=== PATIENT | male | born 1985 | race Two or more races ===

== ENCOUNTER 2018-06-05 08:06 | Inpatient (IN) | payer OTHER ==
[2018-06-05] VITALS (29 sets, daily range): BP systolic 111–157; BP diastolic 44–77; PULSE 59–114; RESP 12–25; Ht 172.7 cm; Wt 96.6 kg
[~2018-06-05] VITALS: Ht 172.7 cm; Wt 96.6 kg
[2018-06-05] MEDS ORDERED: LISI10TA2 PO (08:58)
[2018-06-05] MEDS ORDERED: ATOR10TA65 PO (08:58)
[2018-06-05] MEDS ORDERED: ACETAMINOPHEN 500 MG TAB PO ONE (09:00)
--- NOTE | 2018-06-05 10:07 | PREAC ---
Date/Time of Note Date/Time of Note DATE: 06/05/18 TIME: 10:05 Anesthesia Eval and Record Evaluation Time Pre-Procedure Interview DATE: 06/05/18 TIME: 10:05 Age 32 Sex male NPO: 8 hrs Preoperative diagnosis bilateral gynecomastia Planned procedure bilateral mastectomy and excision of subareolar tissue Past Medical History Past Medical History: Includes Cardio: HTN, Dyslipidemia GI: Obesity Surgery & Anesthesia Issues No known issue Meds Anticoagulation: No Beta Julisa within 24 hr: No Reason Beta Julisa not given: Pt. not on B-Julisa Reported Medications Atorvastatin Calcium (Atorvastatin Calcium) 10 Mg Tablet, 10 MG PO QHS, #30 TAB 06/05/18 Lisinopril* (Lisinopril*) 10 Mg Tablet, 10 MG PO DAILY, #30 TAB 06/05/18 Meds reviewed: Yes Allergies Coded Allergies: No Known Allergy (Unverified , 06/05/18) Allergies Reviewed: Yes Labs/Studies Labs Reviewed: Reviewed by anesthesiologist test: N/A Pre-procedure Exam Last vitals Vital Signs Date Temp Pulse Resp B/P (MAP) Pulse Ox O2 O2 Flow FiO2 Time Delivery Rate 06/05/18 97.6 65 16 130/69 99 Room Air 09:27 (89) Airway: Adequate mouth opening, Adequate thyromental dist Mallampati: Mallampati II Teeth: Normal Lung: Normal Heart: Normal ASA Physical Status ASA physical status: 2 Emergency: None Planned Anesthetic General/MAC: LMA Pre-operative Attestations Prior to commencing anesthesia and surgery, the patient was re-evaluated, there was verification of: *The patient's identity *The results of appropriate recent lab work and preoperative vital signs *The above evaluation not changing prior to induction *Anesthetic plan, risk benefits, alternative and complications discussed with patient/family; questions answered; patient/family understands, accepts and wishes to proceed. AMADOR BUSTILLO Jun 05, 2018 10:07
[2018-06-05] MEDS ORDERED: METOCLOPRAMIDE 10 MG INJ ONE (10:16)
[2018-06-05] MEDS ORDERED: ONDANSETRON 4 MG INJ ONE (10:16)
[2018-06-05] MEDS ORDERED: PROPOFOL 40 ML ONE (10:16)
[2018-06-05] MEDS ORDERED: FENTAnyl 50 MCG/ML VIAL ONE ×3 (10:16→12:54)
[2018-06-05] MEDS ORDERED: LIDOCAINE 2% (SDV) 5 ML INJ ONE (10:16)
[2018-06-05] MEDS ORDERED: MIDAZOLAM 1 MG/ML 2 ML INJ ONE (10:16)
[2018-06-05] MEDS ORDERED: CEFAZOLIN 1 GM INJ ONE (10:16)
[2018-06-05] MEDS ORDERED: FAMOTIDINE 20 MG INJ ONE (10:17)
[2018-06-05] MEDS ORDERED: OXYCODONE/ACETAMINOPHEN (5/325) TAB PO PRN ×2 (10:30)
[2018-06-05] MEDS ORDERED: ALBUTEROL 0.083% (NEB) 2.5 MG/3 ML AMP HHN PRN (10:30)
[2018-06-05] MEDS ORDERED: morphine (1 MG/ML) 10ML SYRINGE IV PRN ×2 (10:30)
[2018-06-05] MEDS ORDERED: ONDANSETRON 4 MG INJ IV PRN (10:30)
[2018-06-05] MEDS ORDERED: HYDROmorphONE 1 MG/5 ML IV SYRINGE IV PRN (10:30)
[2018-06-05] MEDS ORDERED: FENTAnyl 50 MCG/ML VIAL IV PRN (10:30)
[2018-06-05] MEDS ORDERED: DIPHENHYDRAMINE 50 MG INJ IV PRN (10:30)
[2018-06-05] MEDS ORDERED: MEPERIDINE 25 MG INJ IV PRN (10:30)
[2018-06-05] MEDS ORDERED: LABETALOL HCL 20MG INJ IV PRN (10:30)
[2018-06-05] MEDS ORDERED: PHENYLephrine (100 MCG/ML) 5ML SYG ONE ×2 (11:35→12:12)
[2018-06-05] MEDS ORDERED: ESMOLOL 10 ML ONE (11:53)
--- NOTE | 2018-06-05 12:43 | SIPON ---
Date/Time of Note Date/Time of Note DATE: 06/05/18 TIME: 12:42 Operative Report Preoperative Diagnosis Bilateral gynecomastia Postoperative Diagnosis Same Operation/Procedure Performed Bilateral simple mastectomies Surgeon see signature line office assistance Dr Chavez Anesthesia: general Estimated blood loss: 10 - 50 ml's Transfusion Required none Specimen Bilateral mastectomy specimens Grafts/Implants none Complications none GERTRUDE LUJAN MD Jun 05, 2018 12:43
[2018-06-05] MEDS ORDERED: morphine 2 MG INJ IV PRN (13:00)
--- NOTE | 2018-06-05 13:00 | OPR ---
DATE OF OPERATION: 06/05/2018 PREOPERATIVE DIAGNOSIS: Bilateral gynecomastia. POSTOPERATIVE DIAGNOSIS: Bilateral gynecomastia. OPERATION PERFORMED: Bilateral simple mastectomy. ANESTHESIA: General. ANESTHESIOLOGIST: Nurse sign language translator, Bessy Prieto NP SURGEON: Alexander Reinoso MD MILK DRIVER: David Chavez MD INDICATIONS FOR PROCEDURE: The patient is a 32-year-old male who noticed a gradual enlargement of hi s breast tissue bilaterally associated with the enlargement with significant pain and tenderness. Th e patient states that whenever he will hug his , he would feel significant pain in his breast. F or this reason, he seek surgical consultation for bilateral simple mastectomy. A workup was done and specifically testicular exam did not reveal evidence of tumor and blood work did not reveal evidence of an endocrine etiology; therefore, decision was made to proceed with surgery. The patient was con sented and was scheduled for surgery. DESCRIPTION OF PROCEDURE: The patient was brought to the operating theater, placed under general ane sthesia. The anterior thorax and breast regions were prepped and draped bilaterally in the usual kalee rile fashion. Attention was first directed to the left side. A periareolar incision was made from t he 9 o'clock location through the 12 o'clock location to the 3 o'clock location. Subcutaneous tissue was dissected with cautery. Skin hooks were used to elevate the skin edges and skin flaps were crea nehal using cautery in 360-degree fashion, taking care to remove as much of the accessory breast tissue as possible. Mastectomy then took place from medial to lateral using cautery, taking care to leave the pectoralis major fascia intact. In this fashion, the entire specimen was elevated, transected, o riented and sent for permanent pathologic analysis. The wound was irrigated. Minimal bleeding was c ontrolled with cautery. A #10 flat Cory-Velasquez drain was then brought through the left mid axillar y line, cut to size and laid within the wound cavity. It was secured in place with 2-0 nylon suture in the standard fashion. The skin incision was then reapproximated with 5-0 PDS suture in subcuticul ar fashion and Dermabond was applied. Attention was then directed to the right side. In a similar f ashion, a periareolar incision was made from the 3 o'clock location through the 12 o'clock location t o the 9 o'clock location. Subcutaneous tissue was dissected with cautery. Skin edges were elevated with skin hooks and 360-degree dissection of the breast tissue took place via the creation of overlyi ng skin flaps. The specimen was then elevated and transected off of the pectoralis major muscle, rachel ing great care to leave the pectoralis major fascia intact. Specimen was removed, oriented and sent for permanent pathologic analysis. The wound was irrigated. Minimal bleeding was controlled with ca utery. A #10 flat Cory-Velasquez drain was then brought through the right mid axillary line, cut to s ize and laid within the wound. It was secured in place with 2-0 nylon suture in a standard fashion. The skin was then reapproximated with 5-0 PDS suture in subcuticular fashion. Dermabond was applied . The patient tolerated the procedure well. The total blood loss was approximately 40 mL. There we re no complications and the patient was then transported in stable condition to the recovery room whe re circumferential compression dressing was applied. Dictated By: ALEXANDER REINOSO MD TL/DELORIS Conf#: [id number] DID#: [id number] CC: OLEG POLANCO MD;*End*
--- NOTE | 2018-06-05 13:03 | PAC ---
Date/Time of Note Date/Time of Note DATE: 06/05/18 TIME: 13:02 Post-Anesthesia Notes Post-Anesthesia Note Last documented vital signs Vital Signs Date Temp Pulse Resp B/P (MAP) Pulse Ox O2 O2 Flow FiO2 Time Delivery Rate 06/05/18 98 98 16 132/64 () 99 Room Air 1257 Activity: WNL Respiratory function: WNL Cardiovascular function: WNL Mental status: Baseline Pain reasonably controlled: Yes Hydration appropriate: Yes Nausea/Vomiting absent: Yes AMADOR BUSTILLO Jun 05, 2018 13:03
--- NOTE | 2018-06-05 13:20 | NUR ---
Dr. Roa office was regarding medical consult and spoke to Faviola, office personnel.
[2018-06-05] MEDS: HYDROmorphONE 1 MG/5 ML IV SYRINGE IV PRN ×2 (13:36→13:57)
[2018-06-05] MEDS: FENTAnyl 50 MCG/ML VIAL IV PRN ×2 (13:37→13:58)
--- NOTE | 2018-06-05 14:20 | NUR ---
RECEIVED PATIENT REPORT FROM CHARGE NURSE KIKA LÓPEZ. RECEIVED PATIENT TO UNIT 407 AT 14 20 AFTER BILATERAL MASTECTOMY SECONDARY TO GYNAECOMASTIA. UNDER GENERAL ANAESTHESIA. PATIENT COMFORTABLE, VITALS STABLE UPON ADMISSION, IV SITE INTACT AND PATENT WITH IVFLUID ON FLOW. SURGICAL SITE ON BILATERAL CHEST SIDE DRESSING INTACT AND RIGHT AND LEFT ANUSHKA DRAINS FUNCTIONING WELL . NO BLEEDING NOTED. PATIENT GIVEN WITH CLEAR FLUIDS AND WILL ADVANCE TO REGULAR DIET. ALL SAFETY PRECAUTIONS MAINTAINED SUCH BED IN THE LOWEST POSITION, ALARMS ON, BRAKES ON, CALL LIGHT WITHIN REACH. INTRODUCED TO THE UNIT AND STAFF. CALL LIGHT SYSTEM INSTRUCTED . WILL CONTINUE TO MONITOR. .
[2018-06-05] MEDS: D5W-0.45 NACL + KCL 20 MEQ 1,000 ML IV SCH ×2 (14:41→20:43)
[2018-06-05] MEDS: morphine 4 MG/ML VIAL IV PRN ×3 (16:30→20:38)
--- NOTE | 2018-06-05 18:34 | NUR ---
END OF SHIFT NOTE: PATIENT COMFORTABLE . SURGICAL SITE INTACT AND NO BLEEDING NOTED. BOTH ANUSHKA DRAINS EMPTIED AND RECORDED. DIET TOLERATED. ASSISTED WITH BRP. ALL SAFETY PRECAUTIONS MAINTAINED. SCD'S ON. WILL CONTINUE TO MONITOR. CALL LIGHT WITHIN REACH.
[2018-06-05] MEDS ORDERED: ACETAMINOPHEN 325 MG TAB PO PRN (22:00)
[2018-06-06] VITALS: BP 138/72; PULSE 71; RESP 18
--- NOTE | 2018-06-06 00:17 | HP ---
DATE OF ADMISSION: 06/05/2018 CHIEF COMPLAINT AND HISTORY OF PRESENT ILLNESS: The patient is a 32-year-old gentleman with history of hypertension and dyslipidemia. He was seen by Dr. Reinoso because of symptomatic, gradually worseni ng gynecomastia. The patient was brought into the hospital today and underwent bilateral simple mast ectomy. The patient postoperatively had significant chest wall pain; therefore, patient has been adm itted for evaluation and management. The patient denied any history of headache, dizziness, or synco pe. No history of fever or chills. No history of nausea, vomiting, or diarrhea. No history abdomin al pain. No history of leg edema. No history of any focal weakness. No previous history of diabete s. REVIEW OF SYSTEMS: Rest of review of systems unremarkable. PAST MEDICAL HISTORY: As stated above. ALLERGIES: NONE. SOCIAL HISTORY: No smoking or alcohol. FAMILY HISTORY: Noncontributory. PHYSICAL EXAMINATION: GENERAL: The patient found to be awake, alert, and fairly oriented. VITAL SIGNS: Temperature 98.4, pulse 82, respirations 18, blood pressure 128/66, O2 saturation 97% o n room air. HEENT: No eye discharge or redness. Conjunctivae normal. Oropharynx grossly negative. NECK: No mass. CHEST: Fairly clear. CARDIOVASCULAR: S1, S2 normal. No murmur. ABDOMEN: Soft, nontender. EXTREMITIES: No leg edema. NEUROLOGIC: The patient is awake, alert, and fairly oriented with no gross focal deficit. IMPRESSION: 1. Symptomatic bilateral gynecomastia, status post bilateral simple mastectomy. 2. Hypertension. 3. Dyslipidemia. PLAN: The patient will be admitted on medical floor and will be started on Tylenol, [place], and morph ine for pain control. We will resume lisinopril and Lipitor at home. We will use SCD for DVT prophy laxis. Further recommendation and plan will depend on hospital course. We will order CBC and BMP to [place]. Dictated By: OLEG POLANCO MD AB/NTS Conf#: [id number] DID#: [id number] CC: GERTRUDE REINOSO MD;*EndCC*
[2018-06-06] MEDS: HYDROCODONE/APAP (5/325) TAB PO PRN ×3 (00:26→10:11)
[2018-06-06] MEDS: morphine 4 MG/ML VIAL IV PRN (01:59)
[2018-06-06] MEDS ORDERED: DIPHENHYDRAMINE 25 MG CAP PO PRN (04:30)
--- NOTE | 2018-06-06 04:32 | NUR ---
END OF SHIFT NOTE: PATIENT IS A AND O X 4; NOT IN DISTRESS. VS IS WNL; ALL MEDICATIONS HAVE BEEN GIVEN ORDERED AND PRN; ALL NEEDS ATTENDED; CALL LIGHT WITHIN REACH ; WILL ENDORSE TO THE DAY SHIFT RN
[2018-06-06] MEDS: D5W-0.45 NACL + KCL 20 MEQ 1,000 ML IV SCH ×2 (04:43→12:42)
[2018-06-06 04:53] VITALS: BP 128/69; PULSE 75; RESP 18
[2018-06-06 07:40] VITALS: BP 118/66; PULSE 92; RESP 18
[2018-06-06] MEDS ORDERED: LISINOPRIL 10 MG TAB PO SCH (09:00)
--- NOTE | 2018-06-06 14:00 | NUR ---
Patient is alert and oriented x4, able to make needs known; PRN [place] given as needed for pain with good effectiveness noted; no SOB/respiratory distress noted upon assessment; dressing to bilateral breast incision is clean, dry and intact, each connected to ANUSHKA drain patent and draining well; ambulates with steady gait; Dr. Chavez came in and cleared the patient for discharge, post op instructions given by MD; kept comfortable; call light placed within reached; all needs attended; Dr. Roa put in the discharge order for the patient.
--- NOTE | 2018-06-06 14:18 | PDOCDIS ---
Discharge Instructions CONDITION [id number] Patient Condition: [id number] Good HOME CARE INSTRUCTIONS: [id number] Diet Instructions: Yyfna0y Low Fat /Cholesterol ACTIVITY: Kznii4Oa Activity Restrictions: Hndra4m Slowly Increase Activity FOLLOW UP/APPOINTMENTS Follow-up Plan Dr. Reinoso next week PMD in 1-2 week OLEG POLANCO MD Jun 06, 2018 14:18
--- NOTE | 2018-06-06 15:10 | PN ---
DATE: 06/05/2018 Postop day #1 status post bilateral simple subcutaneous mastectomy for gynecomastia. SUBJECTIVE: No complaint. Has had 1 pain medication since morning and night at about 3:00 p.m. in t he afternoon. Wants to go home. OBJECTIVE: VITAL SIGNS: Temperature maximum 98.8, heart rate 75, respiration 18, blood pressure 128/69, saturat ion 98% room air. LABORATORY DATA: WBC 7600, hemoglobin 14.7, hematocrit 43.9. Chemistry: Sodium, potassium, BUN, cr eatinine, glucose, calcium within normal limits. PHYSICAL EXAMINATION: The patient alert as was mentioned. CHEST: Symmetrical expansion. CARDIOVASCULAR: Regular. The lungs are clear. There are 2 Cory-Velasquez drains were coming out eac h from one side of the chest area. The drainage from the Cory-Velasquez drains from some operation ye day to 7 o'clock today morning has been totally 130 mL on the left side, 70 mL on the right, it i s serosanguinous fluid. PLAN: The patient can be discharged home. The patient states that he has pain medication, oxycodone at home and other pain medications at home. Patient was instructed how to take care of Cory-Prat t drains, how to empty them and how to drain them, how to measure them write them down record them an d have the drainage every day and to call Dr. Lujan' office and make an appointment for followup and the days that he goes for followup to take the paper with him so that Dr. Lujan can make a decision i n regard to when to remove the drains. Also, patient was instructed in case any other problem appear s like fever, redness of the skin and any other problem like this, call Dr. Lujan' office or come to the Emergency Room here. Dictated By: ENMANUEL ALMONTE MD PS/NTS Conf#: [id number] DID#: [id number] CC: GERTRUDE LUJAN MD;*End*
--- NOTE | 2018-06-06 15:12 | NUR ---
MEDICAL COST CONSULTANT NOTES: Discharged patient to home via wheelchair accompanied by ; all discharge instructions given and patient verbalized understanding; no home medication prescribed; IV line was discontinued with tip intact; ANUSHKA drain supplies provided; all needs attended; to follow-up with Dr. Reinoso in 1-2 weeks.
--- NOTE | 2018-06-06 15:17 | DS ---
DATE OF ADMISSION: 06/05/2018 DATE OF DISCHARGE: 06/06/2018 DISCHARGE DIAGNOSES: 1. Bilateral gynecomastia, status post bilateral simple mastectomy. 2. Hypertension. 3. Dyslipidemia. DISCHARGE MEDICATIONS: Continue Lisinopril and Lipitor as before. The patient states he has pain me dication at home which he will continue; he could not remember the name of the medication. FOLLOWUP: With PMD in 1 to 2 weeks. Follow up with Dr. Reinoso in 1 week. REASON FOR ADMISSION: The patient is a 32-year-old gentleman with a history of hypertension, dyslip idemia, was seen by Dr. Reinoso because of gradually worsening bilateral gynecomastia. The patient was brought into hospital on 06/05/2018 and underwent bilateral mastectomies. The patient's postoperati ve pain was managed with Tylenol, [place] and IV morphine. Today he is not requiring any significant p ain medication. No shortness of breath. No history of fever or chills. No history of nausea, vomit ing. NEUROLOGIC: The patient is awake, alert, fairly oriented. VITAL SIGNS: Temperature 98, pulse 92, respirations 18, blood pressure 118/66, O2 sat 95 on room air . HEENT: No eye discharge or redness. Conjunctivae normal. Oropharynx clear. NECK: No mass. CHEST: Fairly clear. CARDIOVASCULAR: S1, S2 normal. ABDOMEN: Soft, nontender. EXTREMITIES: No leg edema. NEUROLOGIC: Patient looks alert with no gross focal deficit. LABORATORY DATA: Done this morning, sodium 142, potassium 4.4, BUN 13, creatinine 1, glucose 98, ashtyn cium 9.7. WBC 7.6, hemoglobin 14.7, platelet 262. CONDITION: Stable. DIET: Two-gram sodium, low fat, low cholesterol diet. Dictated By: OLEG POLANCO MD AB/NTS Conf#: [id number] DID#: [id number] CC: GERTRUDE REINOSO MD;*EndCC*
[2018-06-06] MEDS ORDERED: ATORVASTATIN 10 MG TAB PO SCH (21:00)
== END 2018-06-06 15:05 | disposition home or self-care (01) | DRG 585 ==
LOC: REC 08:06 → MS1 14:14
PROVIDERS: ADMIT Surgery Surgical Oncology; ATTEND Surgery Surgical Oncology
PROC: 0HTV0ZZ Resection of Bilateral Breast, Open Approach (ICD-10-PCS; principal; 2018-06-05 10:30)
DX: N62 Hypertrophy of breast (principal); I10 Essential (primary) hypertension; E78.5 Hyperlipidemia, unspecified
CPT/HCPCS: 80048; 85025; 88307; J0690; J1170; J2175; J2250; J2270; J2370; J2405; J2765; J3010; J3480

== ENCOUNTER 2018-07-11 17:01 | Emergency (ER) | payer OTHER ==
[~2018-07-11] VITALS: Ht 180.3 cm; Wt 98.0 kg
[~2018-07-11 17:01] MED LIST: ATOR10TA65 PO; LISI10TA2 PO
[2018-07-11 17:25] VITALS: BP 154/88; PULSE 82; RESP 18; Ht 180.3 cm; Wt 98.0 kg
[2018-07-11] MEDS ORDERED: ACETAMINOPHEN 325 MG TAB PO ONE (18:30)
[2018-07-11] MEDS ORDERED: DIPHTH/TET/ACEL PERTUSS (ADULT) 0.5 ML VIAL IM* ONE (18:30)
[2018-07-11] MEDS ORDERED: ONDA8TAB14 PO (20:27)
--- NOTE | 2018-07-11 20:30 | ERD ---
ER Documentation Chief Complaint Chief Complaint pt is bib self with c/o head pain s/o hitting it yesterday , -KO HPI This 32-year-old male presents with headache after hitting his head while having his dog treated at pet grooming store. He was hit by sharp metal object on the right forehead. He thought pain would resolve but he has persistent frontal headache and photophobia. He has nausea without vomiting. There is no history of loss of consciousness, neck pain, deficits, visual changes. Tetanus is not up-to-date. It was a sharp object and he sustained a puncture wound above the right eyebrow. ROS All systems reviewed and are negative except as per history of present illness. Medications Home Meds Active Scripts Ondansetron (Ondansetron Odt) 8 Mg Tab.rapdis, 8 MG PO Q6H PRN for NAUSEA AND/OR VOMITING, #6 TAB Prov:DANY EDDY MD 07/11/18 Reported Medications Atorvastatin Calcium (Atorvastatin Calcium) 10 Mg Tablet, 10 MG PO QHS, #30 TAB 06/05/18 Lisinopril* (Lisinopril*) 10 Mg Tablet, 10 MG PO DAILY, #30 TAB 06/05/18 Allergies Allergies: Coded Allergies: No Known Allergy (Unverified , 06/05/18) PMhx/Soc Medical and Surgical Hx: pt denies Medical Hx, pt denies Surgical Hx History of Surgery: Yes (apendectomy) Anesthesia Reaction: No Hx Neurological Disorder: No Hx Respiratory Disorders: No Hx Cardiac Disorders: No Hx Psychiatric Problems: No Hx Miscellaneous Medical Probl: No Hx Alcohol Use: No Hx Substance Use: No Hx Tobacco Use: No FmHx Family History: No diabetes, No coronary disease, No other Physical Exam Vitals Vital Signs Date Temp Pulse Resp B/P (MAP) Pulse Ox O2 O2 Flow FiO2 Time Delivery Rate 07/11/18 98.6 82 18 154/88 99 17:25 (110) Physical Exam Const: No acute distress Head: Atraumatic. Tiny puncture wound above the right eyebrow. No deformities, step-offs, erythema, bleeding, discharge. Eyes: Normal Conjunctiva ENT: Normal External Ears, Nose and Mouth. Neck: Full range of motion. No meningismus. Neck nontender. Resp: Clear to auscultation bilaterally Cardio: Regular rate and rhythm, no murmurs Abd: Soft, non tender, non distended. Normal bowel sounds Skin: No petechiae or rashes Back: No midline or flank tenderness Ext: No cyanosis, or edema Neur: Awake and alert renal nerves II through XII grossly intact. No appreciable focal neurologic deficits. Normal gait. Psych: Normal Mood and Affect Results 24 hrs Current Medications Medications Dose Sig/Lorenzo Start Time Status Last (Trade) Ordered Route PRN Stop Time Admin Dose Reason Admin Diphtheria/ 0.5 ml ONCE ONCE 07/11/18 DC 07/11/18 Tetanus/Acell IM* 18:30 07/11/18 18:32 Pertussis 18:31 (Adacel) 650 mg ONCE ONCE 07/11/18 DC 07/11/18 Acetaminophen PO 18:30 07/11/18 18:31 (Tylenol 18:31 Tab) Procedures/MDM Patient presents after head injury yesterday. There is a small sealed puncture wound without signs of infection. CT brain shows no acute abnormalities. He may have concussion without findings of bleeding, fracture, neurologic deficit, additional complications. He will be treated with Zofran, Tylenol, return precautions for redness, fevers, new or worsening symptoms and primary care follow-up. He was given a tetanus booster. The patient was stable with no new complaints during the ER course. Clinically, there is no current evidence to suggest meningitis, sepsis, acute abdomen, pneumonia, stroke, acute coronary syndrome, pulmonary embolism, aortic dissection or any other emergent condition appearing to require further evaluation or hospitalization. Patient counseled regarding my diagnostic impression and care plan. Prior to discharge all questions answered. Pt agrees with treatment plan and understands strict return precautions. Pt is instructed to follow up with primary care provider within 24- 48 hours. Precautionary instructions provided including instructions to return to the ER if not improving or for any worsening or changing symptoms or concerns. Disclaimer: Inadvertent spelling and grammatical errors are likely due to EHR/dictation software use and do not reflect on the overall quality of patient care. Also, please note that the electronic time recorded on this note does not necessarily reflect the actual time of the patient encounter. Departure Diagnosis: Primary Impression: Acute head injury Encounter type: initial encounter Qualified Codes: S09.90XA - Unspecified injury of head, initial encounter Condition: Stable Patient Instructions: Concussion, No Wake Up Additional Instructions: CT read as normal. Recheck for new or worsening symptoms with primary care doctor. Take Tylenol every 4 hours for pain. DANY EDDY MD Jul 11, 2018 20:30
== END 2018-07-11 20:36 | disposition home or self-care (01) ==
LOC: FTE 17:01
DX: S09.90XA Unspecified injury of head, initial encounter (principal); R51 Headache; W22.8XXA Striking against or struck by other objects, initial encounter; Y92.9 Unspecified place or not applicable; Z23 Encounter for immunization
CPT/HCPCS: 70450; 90715; Z7610; 90471